=== PATIENT | male | born 1950 | race Caucasian/White ===

== ENCOUNTER → 2019-03-15 | Outpatient (CLI) | payer OTHER ==
--- NOTE | 2019-03-17 14:39 | PCVCIMAG ---
APPROVED REPORT Study performed: 03/15/2019 10:11:50 EXAM: Comprehensive 2D, Doppler, and color-flow Echocardiogram Patient Location: Echo lab Status: routine BSA: 2.04 HR: 71 bpmBP: 140/82 mmHg Rhythm: NSR Other Information Study Quality: Adequate Risk Factors: Cardiac Risk Factors: Hyperlipidemia Indications Dyspnea Chest Pain elevated calcium score 2D Dimensions IVSd: 10.68 (7-11mm) LVDd: 47.54 mm PWd: 10.32 (7-11mm)Ascending Ao: 35.59 (22-36mm) LVDs: 35.44 (25-40mm) Left Atrium: 39.12 (27-40mm) Aortic Root: 31.54 mm LV Single Plane 4CH: 53.35 % LV Single Plane 2CH: 54.94 % Biplane EF: 56.3 % Volumes Left Atrial Volume (Systole) Single Plane 4CH: 54.40 mLSingle Plane 2CH: 69.63 mL LA ESV Index: 32.00 mL/m2 Aortic Valve AoV Peak Jatinder.: 1.52 m/s AO Peak Gr.: 9.20 mmHgLVOT Max P.68 mmHg LVOT Max V: 0.82 m/s Mitral Valve E/A Ratio: 1.1 MV Decel. Time: 208.29 ms MV E Max Jatinder.: 0.86 m/s MV A Jatinder.: 0.77 m/s IVRT: 100.35 ms Pulmonary Valve PV Peak Jatinder.: 0.85 m/sPV Peak Gr.: 2.92 mmHg Pulmonary Vein P Vein S: 0.28 m/sP Vein A: 0.32 m/s P Vein D: 0.41 m/sP Vein A Dur.: 124.6 msec P Vein S/D Ratio: 0.68 Tricuspid Valve TR Peak Jatinder.: 2.30 m/s TR Peak Gr.: 21.25 mmHg TV Vmax: 0.50 m/s Left Ventricle The left ventricle is normal size. There is normal LV segmental wall motion. There is normal left ventricular wall thickness. Left ventricular systolic function is normal. The left ventricular ejection fraction is within the normal range. LVEF is 50-55%. Grade I - abnormal relaxation pattern. Right Ventricle The right ventricle is normal size. The right ventricular systolic function is normal. Atria The left atrium size is normal. The right atrium size is normal. Aortic Valve The aortic valve is normal in structure. No aortic regurgitation is present. There is no aortic valvular stenosis. Mitral Valve The mitral valve is normal in structure. Trace mitral regurgitation. No evidence of mitral valve stenosis. Tricuspid Valve The tricuspid valve is normal in structure. Trace tricuspid regurgitation with PAP of 28 mmHg. Pulmonic Valve The pulmonary valve is normal in structure. Mild pulmonic regurgitation. Great Vessels The aortic root is normal in size. IVC is normal in size and collapses >50% with inspiration. Pericardium There is no pericardial effusion. There is no pleural effusion. <Conclusion> The left ventricle is normal size. LVEF is 50-55%. The aortic valve is normal in structure. The mitral valve is normal in structure. Trace mitral regurgitation. The tricuspid valve is normal in structure. Trace tricuspid regurgitation with PAP of 28 mmHg. The pulmonary valve is normal in structure. Mild pulmonic regurgitation. There is no pericardial effusion.
== END | disposition home or self-care (01) ==
LOC: PCVCIMAG 10:54
PROVIDERS: ATTEND Internal Medicine
DX: I37.1 Nonrheumatic pulmonary valve insufficiency (principal); R93.1 Abnormal findings on diagnostic imaging of heart and coronary circulation; I10 Essential (primary) hypertension; E78.5 Hyperlipidemia, unspecified; R06.02 Shortness of breath; R07.89 Other chest pain
CPT/HCPCS: 93306